=== PATIENT | male | born 1965 | race Caucasian/White ===

== ENCOUNTER 2016-09-10 17:27 | Emergency (ER) | payer BC, OTHER ==
[2016-09-10 19:41] LABS: VENOUS BASE EXCESS 3.6 (-2.0-2.0); VENOUS O2 SATURATION 58.8 % (60.0-80.0); VENOUS PARTIAL PRESSURE CO2 57.1 mmHg (38.0-50.0); VENOUS PARTIAL PRESSURE O2 31.2 mmHg (30.0-50.0); VENOUS STANDARD HCO3 26.6 MEQ/L; VENOUS TOTAL CO2 32.6 MEQ/L (24.0-28.0)
[2016-09-10 19:44] LABS: BASO % 0.3 % (0.0-1.0); EOS # 0.2 K/mm3 (0.0-0.50); EOS % 2.3 % (0.0-3.0); LARGE UNSTAINED CELL # 0.1 K/mm3 (0.0-0.4); LARGE UNSTAINED CELL % 1.5 % (0.0-4.0); LYMPH # 2.2 K/mm3 (1.5-4.5); LYMPH % 29.9 % (24.0-44.0); MEAN CORPUSCULAR HEMOGLOBIN 31.1 pg (27.0-33.0); MEAN CORPUSCULAR HGB CONC 33.2 g/dl (32.0-36.5); MEAN CORPUSCULAR VOLUME 93.8 fl (80.0-96.0); MONO # 0.4 K/mm3 (0.0-0.8); MONO % 5.4 % (0.0-5.0); NEUTROPHILS # 4.3 K/mm3 (1.8-7.7); NEUTROPHILS % 60.6 % (36.0-66.0); PLATELET COUNT, AUTOMATED 166 k/mm3 (150-450); RED CELL DISTRIBUTION WIDTH 12.9 % (11.5-14.5); WHITE BLOOD COUNT 7.1 K/mm3 (4.0-10.0)
[2016-09-10 19:58] LABS: OSMOLALITY SERUM 299 MOSM/KG (275-295)
[2016-09-10 20:08] LABS: ANION GAP 6 MEQ/L (8-16); BLOOD UREA NITROGEN 13 MG/DL (7-18); CALCIUM LEVEL 8.5 MG/DL (8.5-10.1); CARBON DIOXIDE LEVEL 34 MEQ/L (21-32); CHLORIDE LEVEL 99 MEQ/L (98-107); CREATININE FOR GFR 0.97 MG/DL (0.70-1.30); GLOMERULAR FILTRATION RATE > 60.0 (>56); GLUCOSE, FASTING 304 MG/DL (70-105); POTASSIUM SERUM 4.5 MEQ/L (3.5-5.1); SODIUM LEVEL 139 MEQ/L (136-145)
[2016-09-10] MEDS ORDERED: ATENOLOL 25 MG TAB As Ordered ONE (21:21)
--- NOTE | 2016-09-10 21:36 | EDDOCDS ---
Physician Documentation [facility] Name: Humza Graham Age: 51 yrs Sex: Male : 1965 Arrival Date: 09/10/2016 Time: 17:27 Bed 14 Private MD: NO PRIMARY PHYSICIAN, . Disposition: 09/10/16 21:23 Discharged to Home/Self Care. Impression: Diabetes mellitus due to underlying condition with hyperglycemia, Essential (primary) hypertension. - Condition is Stable. - Discharge Instructions: Blood Glucose Monitoring, Adult, Hypertension, [id number]. - Prescriptions for Glyburide 5 mg Oral Tablet - take 1 tablet by ORAL route once daily; 20 tablet. - Medication Reconciliation, Local Pharmacy Hours form. - Follow up: Pete Yadav MD; When: Call to arrange an appointment; Reason: Continuance of care. - Problem is an acute exacerbation. - Symptoms have improved. - Notes: FOLLOW UP WITH YOUR PRIMARY CARE PROVIDER FOR FURTHER MANAGEMENT OF YOUR BLOOD PRESSURE AND YOUR HIGH BLOOD SUGARS. Historical: - Allergies: Tramadol HCl (Vomit); - Home Meds: 1. atenolol 50 mg Oral tab 1 tab once daily 2. lisinopril 20 mg Oral tab 1 tab once daily 3. metformin 1,000 mg Oral TG24 1 tab 2 times per day - PMHx: Diabetes - NIDDM: controlled; Hypertension; Hypercholesterolemia; Anxiety; - PSHx: Cataract Surgery- Left; meniscus left knee; Carpal Tunnel Repair- Bilateral; - Social history: Smoking status: Patient states was never smoker of tobacco. No barriers to communication noted, The patient speaks fluent Kinyarwanda, Speaks appropriately for age. - Family history: Not pertinent. - : The pt / caregiver states he / she is not on anticoagulants. Home medication list is obtained from the patient. - Exposure Risk Screening:: None identified. Vital Signs: 09/10 17:29 BP 179 / 102; Pulse 122; Resp 18 S; Temp 98.9(O); Pulse Ox 96% on R/A; Weight 108.86 kg gr2 / 240 lbs (R); Height 5 ft. 8 in. (172.72 cm) (R); Pain 2/10; 21:10 BP 167 / 100; Pulse 93; Resp 20; Pulse Ox 97% on R/A; js15 21:15 Temp 97.5(TE); js15 17:29 Body Mass Index 36.49 (108.86 kg, 172.72 cm) gr2 MDM: 17:31 Accucheck ordered. dt4 17:48 Fingerstick Blood Sugar Ordered. EDMS 19:24 IV Saline Lock ordered. mm11 19:24 NS 0.9% 1000 ml IV at bolus once ordered. mm11 19:24 Accucheck hourly ordered. mm11 19:25 CBC with Diff Ordered. EDMS 19:25 BMP Ordered. EDMS 19:25 Osmolality, Serum Ordered. EDMS 19:25 Venous Blood Gas (large pea green tube on ice) Ordered. EDMS 20:04 Fingerstick Blood Sugar Reviewed. mm11 20:04 CBC with Diff Reviewed. mm11 20:04 Osmolality, Serum Reviewed. mm11 20:04 Venous Blood Gas (large pea green tube on ice) Reviewed. mm11 20:18 Financial registration complete. gb 20:25 [facility] Payment Agreement was scanned into [employer] and attached to record. gb 20:53 BMP Reviewed. mm11 20:53 Osmolality, Serum Reviewed. mm11 20:53 Fingerstick Blood Sugar Reviewed. mm11 20:58 Recheck B/P ordered. mm11 21:16 Atenolol 25 mg PO once ordered. mm11 21:16 Fingerstick Blood Sugar Reviewed. mm11 Point of Care Testing: Blood Glucose: 17:36 Blood Glucose: 375 mg/dL; dsf Ranges: Administered Medications: 19:37 Drug: NS 0.9% 1000 ml [sodium chloride 0.9 % intravenous solution] Route: IV; Rate: mlc bolus; Site: left antecubital; 21:26 Drug: Atenolol 25 mg [atenolol 25 mg tablet (1 tabs)] Route: PO; js15 Signatures: Dispatcher [employer] EDMS Lauryn Daley, RN RN srm Stella Fajardo, Reg Reg gb Wu Rich, DO mm11 Gogo Cardona RN RN dsf Annamaria Ireland, PA-C PA-C dt4 Kalli Suarez RN RN js15 Judy Porras RN [facility] The chart was reviewed and I authenticate all verbal orders and agree with the evaluation and treatment provided.Attachments: 20:25 [facility] Payment Agreement gb MTDD
--- NOTE | 2016-09-10 21:36 | EDDOCDS ---
Nurse's Notes [facility] Name: Humza Graham Age: 51 yrs Sex: Male : 1965 Arrival Date: 09/10/2016 Time: 17:27 Bed 14 Private MD: NO PRIMARY PHYSICIAN, . Diagnosis: Diabetes mellitus due to underlying condition with hyperglycemia;Essential (primary) hypertension Presentation: 09/10 17:32 Presenting complaint: Patient states: 489 blood glucose level at home. pt reports dsf feeling shaky and weak. Suicide/Homicide risk assessment- the patient denies having any suicidal and/or homicidal ideations and does not present with any other emotional, behavioral or mental health complaints. Status: Patient is not a service clerk or dependent. Transition of care: patient was not received from another setting of care. 17:32 Method Of Arrival: Walkin/Carried/Asstd dsf 17:42 Adult Sepsis Screening: The patient does not have new or worsening altered mentation. dsf Patient's respiratory rate is less than 22. Systolic blood pressure is greater than 100. Patient has a qSOFA score of 0- Negative Sepsis Screen. 17:42 Acuity: JOSHUA Level 3 dsf Triage Assessment: 17:34 General: Appears in no apparent distress, Behavior is appropriate for age, cooperative. dsf Pain: Denies pain. HIV screening NA for this visit Offered previously. Neurological: Reports weakness. Respiratory: Airway is patent Respiratory effort is even, unlabored, Respiratory pattern is regular, symmetrical. 17:34 Derm: Skin is pink, warm & dry. dsf Historical: - Allergies: Tramadol HCl (Vomit); - Home Meds: 1. atenolol 50 mg Oral tab 1 tab once daily 2. lisinopril 20 mg Oral tab 1 tab once daily 3. metformin 1,000 mg Oral TG24 1 tab 2 times per day - PMHx: Diabetes - NIDDM: controlled; Hypertension; Hypercholesterolemia; Anxiety; - PSHx: Cataract Surgery- Left; meniscus left knee; Carpal Tunnel Repair- Bilateral; - Social history: Smoking status: Patient states was never smoker of tobacco. No barriers to communication noted, The patient speaks fluent Malawian, Speaks appropriately for age. - Family history: Not pertinent. - : The pt / caregiver states he / she is not on anticoagulants. Home medication list is obtained from the patient. - Exposure Risk Screening:: None identified. Screenin:12 Screening information is obtained from the patient. Fall risk: No risks identified. js15 Assistance ADL's: requires no assistance with activities of daily living. Abuse/DV Screen: The patient / caregiver reports he/she is: not in a situation that causes fear, pain or injury. Nutritional screening: No deficits noted. Advance Directives: There is no active DNR order. home support is adequate. Assessment: 20:12 General: Appears in no apparent distress, comfortable, Behavior is appropriate for age, js15 cooperative. Pain: Denies pain. Neurological: Level of Consciousness is awake, alert, obeys commands, Oriented to person, place, time. Cardiovascular: Capillary refill < 3 seconds Heart tones S1 S2 present. Respiratory: Airway is patent Respiratory effort is even, unlabored, Respiratory pattern is regular, symmetrical, Breath sounds are clear bilaterally. GI: Abdomen is non- distended Bowel sounds present X 4 quads. Abd is soft and non tender X 4 quads. Derm: Skin is pink, warm & dry. 21:15 Reassessment: Patient appears in no apparent distress at this time. Patient denies pain js15 at this time. Patient states feeling better. Pt resting on stretcher, respirations even and unlabored, watching tv and talking to family; skin pink, warm, dry. Vital Signs: 17:29 BP 179 / 102; Pulse 122; Resp 18 S; Temp 98.9(O); Pulse Ox 96% on R/A; Weight 108.86 kg gr2 (R); Height 5 ft. 8 in. (172.72 cm) (R); Pain 2/10; 21:10 BP 167 / 100; Pulse 93; Resp 20; Pulse Ox 97% on R/A; js15 21:15 Temp 97.5(TE); js15 17:29 Body Mass Index 36.49 (108.86 kg, 172.72 cm) gr2 Vitals: 17:29 Log In Time: September 10, 2016 at 17:29. gr2 ED Course: 17:28 Patient visited by Jose Juan Medina. gr2 17:28 NO PRIMARY PHYSICIAN, . is Private Physician. gr2 17:28 Patient moved to Waiting gr2 17:30 Patient visited by Jose Juan Medina. gr2 17:30 Patient moved to Pre RCE gr2 17:42 Triage Initiated dsf 19:05 Adamaris Parsons,MILENA is Primary Nurse. ct3 19:05 Patient moved to 14 ct3 19:14 Wu Rich DO is Attending Physician. mm11 19:14 Patient visited by Wu Rich DO. mm11 19:23 Patient visited by Wu Rich DO. mm11 19:37 Patient visited by Judy Porras RN. mlc 19:37 CBC with Diff Sent. mlc 19:37 BMP Sent. mlc 19:37 Osmolality, Serum Sent. mlc 19:37 Venous Blood Gas (large pea green tube on ice) Sent. mlc 19:37 Inserted saline lock: 18 gauge in left antecubital area and blood collected. The [facility] patient tolerated the procedure well. 20:10 Patient visited by Kalli Suarez RN. js15 20:12 The patient / caregiver is instructed regarding the plan of care and ED course. js15 20:25 [facility] Payment Agreement was scanned into [employer] and attached to record. gb 20:55 Patient visited by Wu Rich DO. mm11 21:15 Discontinued IV lock intact, bleeding controlled, pressure dressing applied, No js15 redness/swelling at site. No procedures done that require assistance. 21:22 Pete Yadav MD is Referral Physician. mm11 Administered Medications: 19:37 Drug: NS 0.9% 1000 ml [sodium chloride 0.9 % intravenous solution] Route: IV; Rate: mlc bolus; Site: left antecubital; 21:26 Drug: Atenolol 25 mg [atenolol 25 mg tablet (1 tabs)] Route: PO; js15 Point of Care Testing: Blood Glucose: 17:36 Blood Glucose: 375 mg/dL; dsf Ranges: Order Results: Lab Order: Fingerstick Blood Sugar; SPEC'M 09/10/16 17:36 Test: BEDSIDE GLUCOSE; Value: 375; Range: 70-105; Abnormal: Above high normal; Units: MG/DL; Status: F Lab Order: CBC with Diff; SPEC'M 09/10/16 19:34 Test: WHITE BLOOD COUNT; Value: 7.1; Range: 4.0-10.0; Units: K/mm3; Status: F Test: RED BLOOD COUNT; Value: 4.72; Range: 4.30-6.10; Units: M/mm3; Status: F Test: HEMOGLOBIN; Value: 14.7; Range: 14.0-18.0; Units: g/dl; Status: F Test: HEMATOCRIT; Value: 44.3; Range: 42.0-52.0; Units: %; Status: F Test: MEAN CORPUSCULAR VOLUME; Value: 93.8; Range: 80.0-96.0; Units: fl; Status: F Test: MEAN CORPUSCULAR HEMOGLOBIN; Value: 31.1; Range: 27.0-33.0; Units: pg; Status: F Test: MEAN CORPUSCULAR HGB CONC; Value: 33.2; Range: 32.0-36.5; Units: g/dl; Status: F Test: RED CELL DISTRIBUTION WIDTH; Value: 12.9; Range: 11.5-14.5; Units: %; Status: F Test: PLATELET COUNT, AUTOMATED; Value: 166; Range: 150-450; Units: k/mm3; Status: F Test: NEUTROPHILS %; Value: 60.6; Range: 36.0-66.0; Units: %; Status: F Test: LYMPH %; Value: 29.9; Range: 24.0-44.0; Units: %; Status: F Test: MONO %; Value: 5.4; Range: 0.0-5.0; Abnormal: Above high normal; Units: %; Status: F Test: EOS %; Value: 2.3; Range: 0.0-3.0; Units: %; Status: F Test: BASO %; Value: 0.3; Range: 0.0-1.0; Units: %; Status: F Test: LARGE UNSTAINED CELL %; Value: 1.5; Range: 0.0-4.0; Units: %; Status: F Test: NEUTROPHILS #; Value: 4.3; Range: 1.8-7.7; Units: K/mm3; Status: F Test: LYMPH #; Value: 2.2; Range: 1.5-4.5; Units: K/mm3; Status: F Test: MONO #; Value: 0.4; Range: 0.0-0.8; Units: K/mm3; Status: F Test: EOS #; Value: 0.2; Range: 0.0-0.50; Units: K/mm3; Status: F Test: BASO #; Value: 0.0; Range: 0.0-0.2; Units: K/mm3; Status: F Test: LARGE UNSTAINED CELL #; Value: 0.1; Range: 0.0-0.4; Units: K/mm3; Status: F Lab Order: [facility]; SPEC'M 09/10/16 19:34 Test: GLUCOSE, FASTING; Value: 304; Range: 70-105; Abnormal: Above high normal; Units: MG/DL; Status: F Test: BLOOD UREA NITROGEN; Value: 13; Range: 7-18; Units: MG/DL; Status: F Test: CREATININE FOR GFR; Value: 0.97; Range: 0.70-1.30; Units: MG/DL; Status: F Test: SODIUM LEVEL; Range: 136-145; Units: MEQ/L; Status: I Test: POTASSIUM SERUM; Range: 3.5-5.1; Units: MEQ/L; Status: I Test: CHLORIDE LEVEL; Range: 98-107; Units: MEQ/L; Status: I Test: CARBON DIOXIDE LEVEL; Range: 21-32; Units: MEQ/L; Status: I Test: ANION GAP; Range: 8-16; Units: MEQ/L; Status: I Test: CALCIUM LEVEL; Range: 8.5-10.1; Units: MG/DL; Status: I Test: GLOMERULAR FILTRATION RATE; Value: > 60.0; Range: >56; Status: F Test: SODIUM LEVEL; Value: 139; Range: 136-145; Units: MEQ/L; Status: F Test: POTASSIUM SERUM; Value: 4.5; Range: 3.5-5.1; Units: MEQ/L; Status: F Test: CHLORIDE LEVEL; Value: 99; Range: 98-107; Units: MEQ/L; Status: F Test: CARBON DIOXIDE LEVEL; Value: 34; Range: 21-32; Abnormal: Above high normal; Units: MEQ/L; Status: F Test: ANION GAP; Value: 6; Range: 8-16; Abnormal: Below low normal; Units: MEQ/L; Status: F Test: CALCIUM LEVEL; Value: 8.5; Range: 8.5-10.1; Units: MG/DL; Status: F Test Note: ; Units are mL/min/1.73 m2 Chronic Kidney Disease Staging per NKF: Stage I & II GFR >=60 Normal to Mildly Decreased Stage III GFR 30-59 Moderately Decreased Stage IV GFR 15-29 Severely Decreased Stage V GFR <15 Very Little GFR Left ESRD GFR <15 on [employer] WORKER Lab Order: Osmolality, Serum; [facility]09/10/16 19:34 Test: OSMOLALITY SERUM; Value: 299; Range: 275-295; Abnormal: Above high normal; Units: MOSM/KG; Status: F Lab Order: Venous Blood Gas (large pea green tube on ice); [facility] 09/10/16 19:34 Test: VENOUS PH; Value: 7.350; Range: 7.330-7.430; Units: UNITS; Status: F Test: VENOUS PARTIAL PRESSURE CO2; Value: 57.1; Range: 38.0-50.0; Abnormal: Above high normal; Units: mmHg; Status: F Test: VENOUS PARTIAL PRESSURE O2; Value: 31.2; Range: 30.0-50.0; Units: mmHg; Status: F Test: VENOUS TOTAL CO2; Value: 32.6; Range: 24.0-28.0; Abnormal: Above high normal; Units: MEQ/L; Status: F Test: VENOUS HCO3; Value: 30.8; Range: 23.0-27.0; Abnormal: Above high normal; Units: MEQ/L; Status: F Test: VENOUS BASE EXCESS; Value: 3.6; Range: -2.0-2.0; Abnormal: Above high normal; Status: F Test: VENOUS STANDARD HCO3; Value: 26.6; Units: MEQ/L; Status: F Test: VENOUS O2 SATURATION; Value: 58.8; Range: 60.0-80.0; Abnormal: Below low normal; Units: %; Status: F Lab Order: Fingerstick Blood Sugar; [facility]09/10/16 19:57 Test: BEDSIDE GLUCOSE; Value: 294; Range: 70-105; Abnormal: Above high normal; Units: MG/DL; Status: F Test Note: ; RN Notified Doctor Notified Lab Order: Fingerstick Blood Sugar; [facility] 09/10/16 21:07 Test: BEDSIDE GLUCOSE; Value: 217; Range: 70-105; Abnormal: Above high normal; Units: MG/DL; Status: F Test Note: ; RN Notified Doctor Notified Outcome: 21:15 Discharge Assessment: Patient awake, alert and oriented x 3. No cognitive and/or js15 functional deficits noted. Patient verbalized understanding of disposition instructions. patient administered narcotics - no. The following High Risk Discharge criteria are identified: None. Discharged to home ambulatory. Condition: stable. Discharge instructions given to patient, Instructed on discharge instructions, follow up and referral plans. medication usage, Demonstrated understanding of instructions, medications, Pt was receptive of discharge instructions/ teaching. Prescriptions given X 1. No special radiology studies were completed. Property sent home with patient. 21:23 Discharge ordered by Provider. mm11 21:35 Patient left the ED. js15 Signatures: Lauryn Daley, RN RN [facility] Scotty, Stella, Reg Reg gb Wu Rich, DO DO mm11 Josee Burkett, MAINTENANCE OF WAY SUPERVISOR MAINTENANCE OF WAY SUPERVISOR ct3 Gogo Cardona,RN RN Jose Juan Tejeda gr2 Judy Porras,RN RN Kalli ColladoRN RN js15 SEBAS
--- NOTE | 2016-09-12 22:36 | EDDOCDS ---
Nurse's Notes [facility] Name: Humza Graham Age: 51 yrs Sex: Male : 1965 Arrival Date: 09/10/2016 Time: 17:27 Bed 14 Private MD: NO PRIMARY PHYSICIAN, . Diagnosis: Diabetes mellitus due to underlying condition with hyperglycemia;Essential (primary) hypertension Presentation: 09/10 17:32 Presenting complaint: Patient states: 489 blood glucose level at home. pt reports dsf feeling shaky and weak. Suicide/Homicide risk assessment- the patient denies having any suicidal and/or homicidal ideations and does not present with any other emotional, behavioral or mental health complaints. Status: Patient is not a automotive service porter or dependent. Transition of care: patient was not received from another setting of care. 17:32 Method Of Arrival: Walkin/Carried/Asstd dsf 17:42 Adult Sepsis Screening: The patient does not have new or worsening altered mentation. dsf Patient's respiratory rate is less than 22. Systolic blood pressure is greater than 100. Patient has a qSOFA score of 0- Negative Sepsis Screen. 17:42 Acuity: JOSHUA Level 3 dsf Triage Assessment: 17:34 General: Appears in no apparent distress, Behavior is appropriate for age, cooperative. dsf Pain: Denies pain. HIV screening NA for this visit Offered previously. Neurological: Reports weakness. Respiratory: Airway is patent Respiratory effort is even, unlabored, Respiratory pattern is regular, symmetrical. 17:34 Derm: Skin is pink, warm & dry. dsf Historical: - Allergies: Tramadol HCl (Vomit); - Home Meds: 1. atenolol 50 mg Oral tab 1 tab once daily 2. lisinopril 20 mg Oral tab 1 tab once daily 3. metformin 1,000 mg Oral TG24 1 tab 2 times per day - PMHx: Diabetes - NIDDM: controlled; Hypertension; Hypercholesterolemia; Anxiety; - PSHx: Cataract Surgery- Left; meniscus left knee; Carpal Tunnel Repair- Bilateral; - Social history: Smoking status: Patient states was never smoker of tobacco. No barriers to communication noted, The patient speaks fluent Turkmen, Speaks appropriately for age. - Family history: Not pertinent. - : The pt / caregiver states he / she is not on anticoagulants. Home medication list is obtained from the patient. - Exposure Risk Screening:: None identified. Screenin:12 Screening information is obtained from the patient. Fall risk: No risks identified. js15 Assistance ADL's: requires no assistance with activities of daily living. Abuse/DV Screen: The patient / caregiver reports he/she is: not in a situation that causes fear, pain or injury. Nutritional screening: No deficits noted. Advance Directives: There is no active DNR order. home support is adequate. Assessment: 20:12 General: Appears in no apparent distress, comfortable, Behavior is appropriate for age, js15 cooperative. Pain: Denies pain. Neurological: Level of Consciousness is awake, alert, obeys commands, Oriented to person, place, time. Cardiovascular: Capillary refill < 3 seconds Heart tones S1 S2 present. Respiratory: Airway is patent Respiratory effort is even, unlabored, Respiratory pattern is regular, symmetrical, Breath sounds are clear bilaterally. GI: Abdomen is non- distended Bowel sounds present X 4 quads. Abd is soft and non tender X 4 quads. Derm: Skin is pink, warm & dry. 21:15 Reassessment: Patient appears in no apparent distress at this time. Patient denies pain js15 at this time. Patient states feeling better. Pt resting on stretcher, respirations even and unlabored, watching tv and talking to family; skin pink, warm, dry. Vital Signs: 17:29 BP 179 / 102; Pulse 122; Resp 18 S; Temp 98.9(O); Pulse Ox 96% on R/A; Weight 108.86 kg gr2 (R); Height 5 ft. 8 in. (172.72 cm) (R); Pain 2/10; 21:10 BP 167 / 100; Pulse 93; Resp 20; Pulse Ox 97% on R/A; js15 21:15 Temp 97.5(TE); js15 17:29 Body Mass Index 36.49 (108.86 kg, 172.72 cm) gr2 Vitals: 17:29 Log In Time: September 10, 2016 at 17:29. gr2 ED Course: 17:28 Patient visited by Jose Juan Medina. gr2 17:28 NO PRIMARY PHYSICIAN, . is Private Physician. gr2 17:28 Patient moved to Waiting gr2 17:30 Patient visited by Jose Juan Medina. gr2 17:30 Patient moved to Pre RCE gr2 17:42 Triage Initiated dsf 19:05 Adamaris Parsons,MILENA is Primary Nurse. ct3 19:05 Patient moved to 14 ct3 19:14 Wu Rich DO is Attending Physician. mm11 19:14 Patient visited by Wu Rich DO. mm11 19:23 Patient visited by Wu Rich DO. mm11 19:37 Patient visited by Judy Porras RN. mlc 19:37 CBC with Diff Sent. mlc 19:37 BMP Sent. mlc 19:37 Osmolality, Serum Sent. mlc 19:37 Venous Blood Gas (large pea green tube on ice) Sent. mlc 19:37 Inserted saline lock: 18 gauge in left antecubital area and blood collected. [facility] [place] tolerated the procedure well. 20:10 Patient visited by Kalli Suarez RN. js15 20:12 The patient / caregiver is instructed regarding the plan of care and ED course. js15 20:25 [facility] Payment Agreement was scanned into [employer] and attached to record. gb 20:55 Patient visited by Wu Rich DO. mm11 21:15 Discontinued IV lock intact, bleeding controlled, pressure dressing applied, No js15 redness/swelling at site. No procedures done that require assistance. 21:22 Pete Yadav MD is Referral Physician. mm11 09/11 09:47 T-Sheet-- Draft Copy was scanned into [employer] and attached to record. jp5 Administered Medications: 09/10 19:37 Drug: NS 0.9% 1000 ml [sodium chloride 0.9 % intravenous solution] Route: IV; Rate: mlc bolus; Site: left antecubital; 21:26 Drug: Atenolol 25 mg [atenolol 25 mg tablet (1 tabs)] Route: PO; js15 Point of Care Testing: Blood Glucose: 17:36 Blood Glucose: 375 mg/dL; dsf Ranges: Order Results: Lab Order: Fingerstick Blood Sugar; SPEC'M 09/10/16 17:36 Test: BEDSIDE GLUCOSE; Value: 375; Range: 70-105; Abnormal: Above high normal; Units: MG/DL; Status: F Lab Order: CBC with Diff; SPEC'M 09/10/16 19:34 Test: WHITE BLOOD COUNT; Value: 7.1; Range: 4.0-10.0; Units: K/mm3; Status: F Test: RED BLOOD COUNT; Value: 4.72; Range: 4.30-6.10; Units: M/mm3; Status: F Test: HEMOGLOBIN; Value: 14.7; Range: 14.0-18.0; Units: g/dl; Status: F Test: HEMATOCRIT; Value: 44.3; Range: 42.0-52.0; Units: %; Status: F Test: MEAN CORPUSCULAR VOLUME; Value: 93.8; Range: 80.0-96.0; Units: fl; Status: F Test: MEAN CORPUSCULAR HEMOGLOBIN; Value: 31.1; Range: 27.0-33.0; Units: pg; Status: F Test: MEAN CORPUSCULAR HGB CONC; Value: 33.2; Range: 32.0-36.5; Units: g/dl; Status: F Test: RED CELL DISTRIBUTION WIDTH; Value: 12.9; Range: 11.5-14.5; Units: %; Status: F Test: PLATELET COUNT, AUTOMATED; Value: 166; Range: 150-450; Units: k/mm3; Status: F Test: NEUTROPHILS %; Value: 60.6; Range: 36.0-66.0; Units: %; Status: F Test: LYMPH %; Value: 29.9; Range: 24.0-44.0; Units: %; Status: F Test: MONO %; Value: 5.4; Range: 0.0-5.0; Abnormal: Above high normal; Units: %; Status: F Test: EOS %; Value: 2.3; Range: 0.0-3.0; Units: %; Status: F Test: BASO %; Value: 0.3; Range: 0.0-1.0; Units: %; Status: F Test: LARGE UNSTAINED CELL %; Value: 1.5; Range: 0.0-4.0; Units: %; Status: F Test: NEUTROPHILS #; Value: 4.3; Range: 1.8-7.7; Units: K/mm3; Status: F Test: LYMPH #; Value: 2.2; Range: 1.5-4.5; Units: K/mm3; Status: F Test: MONO #; Value: 0.4; Range: 0.0-0.8; Units: K/mm3; Status: F Test: EOS #; Value: 0.2; Range: 0.0-0.50; Units: K/mm3; Status: F Test: BASO #; Value: 0.0; Range: 0.0-0.2; Units: K/mm3; Status: F Test: LARGE UNSTAINED CELL #; Value: 0.1; Range: 0.0-0.4; Units: K/mm3; Status: F Lab Order: [facility]; SPEC'M 09/10/16 19:34 Test: GLUCOSE, FASTING; Value: 304; Range: 70-105; Abnormal: Above high normal; Units: MG/DL; Status: F Test: BLOOD UREA NITROGEN; Value: 13; Range: 7-18; Units: MG/DL; Status: F Test: CREATININE FOR GFR; Value: 0.97; Range: 0.70-1.30; Units: MG/DL; Status: F Test: SODIUM LEVEL; Range: 136-145; Units: MEQ/L; Status: I Test: POTASSIUM SERUM; Range: 3.5-5.1; Units: MEQ/L; Status: I Test: CHLORIDE LEVEL; Range: 98-107; Units: MEQ/L; Status: I Test: CARBON DIOXIDE LEVEL; Range: 21-32; Units: MEQ/L; Status: I Test: ANION GAP; Range: 8-16; Units: MEQ/L; Status: I Test: CALCIUM LEVEL; Range: 8.5-10.1; Units: MG/DL; Status: I Test: GLOMERULAR FILTRATION RATE; Value: > 60.0; Range: >56; Status: F Test: SODIUM LEVEL; Value: 139; Range: 136-145; Units: MEQ/L; Status: F Test: POTASSIUM SERUM; Value: 4.5; Range: 3.5-5.1; Units: MEQ/L; Status: F Test: CHLORIDE LEVEL; Value: 99; Range: 98-107; Units: MEQ/L; Status: F Test: CARBON DIOXIDE LEVEL; Value: 34; Range: 21-32; Abnormal: Above high normal; Units: MEQ/L; Status: F Test: ANION GAP; Value: 6; Range: 8-16; Abnormal: Below low normal; Units: MEQ/L; Status: F Test: CALCIUM LEVEL; Value: 8.5; Range: 8.5-10.1; Units: MG/DL; Status: F Test Note: ; Units are mL/min/1.73 m2 Chronic Kidney Disease Staging per NKF: Stage I & II GFR >=60 Normal to Mildly Decreased Stage III GFR 30-59 Moderately Decreased Stage IV GFR 15-29 Severely Decreased Stage V GFR <15 Very Little GFR Left ESRD GFR <15 on MACHINE ASSEMBLER SUPERVISOR Lab Order: Osmolality, Serum; [facility]09/10/16 19:34 Test: OSMOLALITY SERUM; Value: 299; Range: 275-295; Abnormal: Above high normal; Units: MOSM/KG; Status: F Lab Order: Venous Blood Gas (large pea green tube on ice); [facility] 09/10/16 19:34 Test: VENOUS PH; Value: 7.350; Range: 7.330-7.430; Units: UNITS; Status: F Test: VENOUS PARTIAL PRESSURE CO2; Value: 57.1; Range: 38.0-50.0; Abnormal: Above high normal; Units: mmHg; Status: F Test: VENOUS PARTIAL PRESSURE O2; Value: 31.2; Range: 30.0-50.0; Units: mmHg; Status: F Test: VENOUS TOTAL CO2; Value: 32.6; Range: 24.0-28.0; Abnormal: Above high normal; Units: MEQ/L; Status: F Test: VENOUS HCO3; Value: 30.8; Range: 23.0-27.0; Abnormal: Above high normal; Units: MEQ/L; Status: F Test: VENOUS BASE EXCESS; Value: 3.6; Range: -2.0-2.0; Abnormal: Above high normal; Status: F Test: VENOUS STANDARD HCO3; Value: 26.6; Units: MEQ/L; Status: F Test: VENOUS O2 SATURATION; Value: 58.8; Range: 60.0-80.0; Abnormal: Below low normal; Units: %; Status: F Lab Order: Fingerstick Blood Sugar; SPEC09/10/16 19:57 Test: BEDSIDE GLUCOSE; Value: 294; Range: 70-105; Abnormal: Above high normal; Units: MG/DL; Status: F Test Note: ; RN Notified Doctor Notified Lab Order: Fingerstick Blood Sugar; [facility] 09/10/16 21:07 Test: BEDSIDE GLUCOSE; Value: 217; Range: 70-105; Abnormal: Above high normal; Units: MG/DL; Status: F Test Note: ; RN Notified Doctor Notified Outcome: 21:15 Discharge Assessment: Patient awake, alert and oriented x 3. No cognitive and/or js15 functional deficits noted. Patient verbalized understanding of disposition instructions. patient administered narcotics - no. The following High Risk Discharge criteria are identified: None. Discharged to home ambulatory. Condition: stable. Discharge instructions given to patient, Instructed on discharge instructions, follow up and referral plans. medication usage, Demonstrated understanding of instructions, medications, Pt was receptive of discharge instructions/ teaching. Prescriptions given X 1. No special radiology studies were completed. Property sent home with patient. 21:23 Discharge ordered by Provider. mm11 21:35 Patient left the ED. js15 Signatures: Lauryn Daley, RN RN [facility] Stella Fajardo, Reg Reg gb Wu Rich, DO DO mm11 Josee Burkett, CHEERLEADING COACH CHEERLEADING COACH ct3 Gogo Cardona RN RN Jose Juan Reyes gr2 Judy Porras RN RN mlc Sweeney, Julia, RN RN js15 Esturado Carter jp5 Chart Complete [facility]
--- NOTE | 2016-09-12 22:36 | EDDOCDS ---
Physician Documentation [facility] Name: Humza Graham Age: 51 yrs Sex: Male : 1965 Arrival Date: 09/10/2016 Time: 17:27 Bed 14 Private MD: NO PRIMARY PHYSICIAN, . Disposition: 09/10/16 21:23 Discharged to Home/Self Care. Impression: Diabetes mellitus due to underlying condition with hyperglycemia, Essential (primary) hypertension. - Condition is Stable. - Discharge Instructions: Blood Glucose Monitoring, Adult, Hypertension, [id number]. - Prescriptions for Glyburide 5 mg Oral Tablet - take 1 tablet by ORAL route once daily; 20 tablet. - Medication Reconciliation, Local Pharmacy Hours form. - Follow up: Pete Yadav MD; When: Call to arrange an appointment; Reason: Continuance of care. - Problem is an acute exacerbation. - Symptoms have improved. - Notes: FOLLOW UP WITH YOUR PRIMARY CARE PROVIDER FOR FURTHER MANAGEMENT OF YOUR BLOOD PRESSURE AND YOUR HIGH BLOOD SUGARS. Historical: - Allergies: Tramadol HCl (Vomit); - Home Meds: 1. atenolol 50 mg Oral tab 1 tab once daily 2. lisinopril 20 mg Oral tab 1 tab once daily 3. metformin 1,000 mg Oral TG24 1 tab 2 times per day - PMHx: Diabetes - NIDDM: controlled; Hypertension; Hypercholesterolemia; Anxiety; - PSHx: Cataract Surgery- Left; meniscus left knee; Carpal Tunnel Repair- Bilateral; - Social history: Smoking status: Patient states was never smoker of tobacco. No barriers to communication noted, The patient speaks fluent Belarusian, Speaks appropriately for age. - Family history: Not pertinent. - : The pt / caregiver states he / she is not on anticoagulants. Home medication list is obtained from the patient. - Exposure Risk Screening:: None identified. Vital Signs: 09/10 17:29 BP 179 / 102; Pulse 122; Resp 18 S; Temp 98.9(O); Pulse Ox 96% on R/A; Weight 108.86 kg gr2 / 240 lbs (R); Height 5 ft. 8 in. (172.72 cm) (R); Pain 2/10; 21:10 BP 167 / 100; Pulse 93; Resp 20; Pulse Ox 97% on R/A; js15 21:15 Temp 97.5(TE); js15 17:29 Body Mass Index 36.49 (108.86 kg, 172.72 cm) gr2 MDM: 17:31 Accucheck ordered. dt4 17:48 Fingerstick Blood Sugar Ordered. EDMS 19:24 IV Saline Lock ordered. mm11 19:24 NS 0.9% 1000 ml IV at bolus once ordered. mm11 19:24 Accucheck hourly ordered. mm11 19:25 CBC with Diff Ordered. EDMS 19:25 BMP Ordered. EDMS 19:25 Osmolality, Serum Ordered. EDMS 19:25 Venous Blood Gas (large pea green tube on ice) Ordered. EDMS 20:04 Fingerstick Blood Sugar Reviewed. mm11 20:04 CBC with Diff Reviewed. mm11 20:04 Osmolality, Serum Reviewed. mm11 20:04 Venous Blood Gas (large pea green tube on ice) Reviewed. mm11 20:18 Financial registration complete. gb 20:25 [facility] [place] was scanned into [employer] and attached to record. gb 20:53 BMP Reviewed. mm11 20:53 Osmolality, Serum Reviewed. mm11 20:53 Fingerstick Blood Sugar Reviewed. mm11 20:58 Recheck B/P ordered. mm11 21:16 Atenolol 25 mg PO once ordered. mm11 21:16 Fingerstick Blood Sugar Reviewed. mm11 09/11 09:47 T-Sheet-- Draft Copy was scanned into [employer] and attached to record. jp5 Point of Care Testing: Blood Glucose: 09/10 17:36 Blood Glucose: 375 mg/dL; dsf Ranges: Administered Medications: 19:37 Drug: NS 0.9% 1000 ml [sodium chloride 0.9 % intravenous solution] Route: IV; Rate: mlc bolus; Site: left antecubital; 21:26 Drug: Atenolol 25 mg [atenolol 25 mg tablet (1 tabs)] Route: PO; js15 Signatures: Dispatcher [employer] Lauryn Barnett RN RN [facility] Stella Fajardo, Reg Reg Wu Rich, DO MONTANO mm11 Gogo Cardona RN RN dsf Annamaria Ireland, DIETERC PA-C dt4 Kalli Suarez RN RN js15 Estuardo Carter jp5 Judy Porras RN mlc The chart was reviewed and I authenticate all verbal orders and agree with the evaluation and treatment provided.Attachments: 20:25 [facility] [place] Agreement gb 09/11 09:47 T-Sheet-- Draft Copy jp5 Chart Complete MTDD
--- NOTE | 2016-09-12 22:36 | EDDOCDS ---
Physician Documentation [facility] Name: Humza Graham Age: 51 yrs Sex: Male : 1965 Arrival Date: 09/10/2016 Time: 17:27 Bed 14 Private MD: NO PRIMARY PHYSICIAN, . Disposition: 09/10/16 21:23 Discharged to Home/Self Care. Impression: Diabetes mellitus due to underlying condition with hyperglycemia, Essential (primary) hypertension. - Condition is Stable. - Discharge Instructions: Blood Glucose Monitoring, Adult, Hypertension, [id number]. - Prescriptions for Glyburide 5 mg Oral Tablet - take 1 tablet by ORAL route once daily; 20 tablet. - Medication Reconciliation, Local Pharmacy Hours form. - Follow up: Pete Yadav MD; When: Call to arrange an appointment; Reason: Continuance of care. - Problem is an acute exacerbation. - Symptoms have improved. - Notes: FOLLOW UP WITH YOUR PRIMARY CARE PROVIDER FOR FURTHER MANAGEMENT OF YOUR BLOOD PRESSURE AND YOUR HIGH BLOOD SUGARS. Historical: - Allergies: Tramadol HCl (Vomit); - Home Meds: 1. atenolol 50 mg Oral tab 1 tab once daily 2. lisinopril 20 mg Oral tab 1 tab once daily 3. metformin 1,000 mg Oral TG24 1 tab 2 times per day - PMHx: Diabetes - NIDDM: controlled; Hypertension; Hypercholesterolemia; Anxiety; - PSHx: Cataract Surgery- Left; meniscus left knee; Carpal Tunnel Repair- Bilateral; - Social history: Smoking status: Patient states was never smoker of tobacco. No barriers to communication noted, The patient speaks fluent Azeri, Speaks appropriately for age. - Family history: Not pertinent. - : The pt / caregiver states he / she is not on anticoagulants. Home medication list is obtained from the patient. - Exposure Risk Screening:: None identified. Vital Signs: 09/10 17:29 BP 179 / 102; Pulse 122; Resp 18 S; Temp 98.9(O); Pulse Ox 96% on R/A; Weight 108.86 kg gr2 / 240 lbs (R); Height 5 ft. 8 in. (172.72 cm) (R); Pain 2/10; 21:10 BP 167 / 100; Pulse 93; Resp 20; Pulse Ox 97% on R/A; js15 21:15 Temp 97.5(TE); js15 17:29 Body Mass Index 36.49 (108.86 kg, 172.72 cm) gr2 MDM: 17:31 Accucheck ordered. dt4 17:48 Fingerstick Blood Sugar Ordered. EDMS 19:24 IV Saline Lock ordered. mm11 19:24 NS 0.9% 1000 ml IV at bolus once ordered. mm11 19:24 Accucheck hourly ordered. mm11 19:25 CBC with Diff Ordered. EDMS 19:25 BMP Ordered. EDMS 19:25 Osmolality, Serum Ordered. EDMS 19:25 Venous Blood Gas (large pea green tube on ice) Ordered. EDMS 20:04 Fingerstick Blood Sugar Reviewed. mm11 20:04 CBC with Diff Reviewed. mm11 20:04 Osmolality, Serum Reviewed. mm11 20:04 Venous Blood Gas (large pea green tube on ice) Reviewed. mm11 20:18 Financial registration complete. gb 20:25 [facility] [place] Agreement was scanned into [employer] and attached to record. gb 20:53 BMP Reviewed. mm11 20:53 Osmolality, Serum Reviewed. mm11 20:53 Fingerstick Blood Sugar Reviewed. mm11 20:58 Recheck B/P ordered. mm11 21:16 Atenolol 25 mg PO once ordered. mm11 21:16 Fingerstick Blood Sugar Reviewed. mm11 09/11 09:47 T-Sheet-- Draft Copy was scanned into [employer] and attached to record. jp5 Point of Care Testing: Blood Glucose: 09/10 17:36 Blood Glucose: 375 mg/dL; dsf Ranges: Administered Medications: 19:37 Drug: NS 0.9% 1000 ml [sodium chloride 0.9 % intravenous solution] Route: IV; Rate: mlc bolus; Site: left antecubital; 21:26 Drug: Atenolol 25 mg [atenolol 25 mg tablet (1 tabs)] Route: PO; js15 Signatures: Dispatcher [employer] Lauryn Barnett RN RN [facility] Stella Fajardo, Reg Reg Wu Rich, DO MONTANO mm11 Gogo Cardona RN RN dsf Annamaria Ireland, DIETERC PA-C dt4 Kalli Suarez RN RN js15 Estuardo Carter jp5 Judy Porras RN mlc The chart was reviewed and I authenticate all verbal orders and agree with the evaluation and treatment provided.Attachments: 20:25 [facility] [place] Agreement gb 09/11 09:47 T-Sheet-- Draft Copy jp5 Chart Complete MTDD
== END 2016-09-10 21:35 | disposition home or self-care (01) ==
LOC: M ED 17:27
DX: E11.65 Type 2 diabetes mellitus with hyperglycemia (principal); I10 Essential (primary) hypertension; E78.00 Pure hypercholesterolemia, unspecified; F41.9 Anxiety disorder, unspecified; Z79.899 Other long term (current) drug therapy; Z79.84 Long term (current) use of oral hypoglycemic drugs; Z88.5 Allergy status to narcotic agent

== ENCOUNTER → 2016-09-21 | Outpatient (REF) | payer OTHER | LOC: M SFHCADAM 16:28 | PROVIDERS: ATTEND Physician Assistant | DX: E11.9 Type 2 diabetes mellitus without complications (principal) ==

== ENCOUNTER → 2017-01-31 | Outpatient (REF) | payer OTHER, SELFPAY ==
[2017-01-31 13:28] LABS: ALBUMIN 3.8 GM/DL (3.2-5.2); ALBUMIN/GLOBULIN RATIO 1.19 (1.00-1.93); ALKALINE PHOSPHATASE 67 U/L (45-117); ALT/SGPT 146 U/L (12-78); ANION GAP 7 MEQ/L (8-16); AST/SGOT 54 U/L (15-37); BILIRUBIN,TOTAL 0.5 MG/DL (0.2-1.0); BLOOD UREA NITROGEN 12 MG/DL (7-18); CALCIUM LEVEL 8.7 MG/DL (8.5-10.1); CARBON DIOXIDE LEVEL 30 MEQ/L (21-32); CHLORIDE LEVEL 98 MEQ/L (98-107); CHOLESTEROL LEVEL 148 MG/DL (<200); CREATININE FOR GFR 0.93 MG/DL (0.70-1.30); FREE T4 1.01 NG/DL (0.76-1.46); GLOMERULAR FILTRATION RATE > 60.0 (>56); GLUCOSE, FASTING 246 MG/DL (70-105); POTASSIUM SERUM 4.4 MEQ/L (3.5-5.1); SODIUM LEVEL 135 MEQ/L (136-145); TRIGLYCERIDES LEVEL 101 MG/DL (<150)
== END ==
LOC: M SFHCADAM 11:12
PROVIDERS: ATTEND Physician Assistant
DX: E11.9 Type 2 diabetes mellitus without complications (principal); I10 Essential (primary) hypertension

== ENCOUNTER → 2017-05-03 | Outpatient (REF) | payer OTHER, SELFPAY ==
[2017-05-03 14:11] LABS: ANION GAP 5 MEQ/L (8-16); BLOOD UREA NITROGEN 12 MG/DL (7-18); CARBON DIOXIDE LEVEL 31 MEQ/L (21-32); CHLORIDE LEVEL 102 MEQ/L (98-107); GLOMERULAR FILTRATION RATE > 60.0 (>56); GLUCOSE, FASTING 247 MG/DL (70-105); SODIUM LEVEL 138 MEQ/L (136-145)
== END ==
LOC: M SFHCADAM 08:42
PROVIDERS: ATTEND Physician Assistant
DX: E11.65 Type 2 diabetes mellitus with hyperglycemia (principal); Z79.4 Long term (current) use of insulin

== ENCOUNTER → 2020-10-22 | Outpatient (CLI) | payer OTHER ==
--- NOTE | 2020-10-24 07:53 | ECWPNPC ---
PATIENT NAME: ISAI JARQUIN : 1965 GENDER: MALE VISIT DATE: 10/22/2020 DISCHARGE DATE: 10/22/20941 VISIT LOCKED DATE TIME: PHYSICIAN: MALIHA NAGY PHYSICIAN PAGER NO: ACTIVE RESOURCE: MALIHA NAGY REASON FOR APPOINTMENT 1. CHRONIC LOW BACK HISTORY OF PRESENT ILLNESS DEPRESSION SCREENING: PHQ-2 (2015 EDITION) LITTLE INTEREST OR PLEASURE IN DOING THINGS?NOT AT ALL FEELING DOWN, DEPRESSED, OR HOPELESS?NOT AT ALL TOTAL SCORE0 55-YEAR-OLD MALE IN FOR INITIAL PAIN CONSULT REGARDING LOW BACK PAIN. PATIENT DOES ADMIT TO A HISTORY OF A LAMINECTOMY AND STATES HE'S HAD BACK PAIN SINCE THAT TIME. HE RATES HIS PAIN CURRENTLY AT A 6 OUT OF 10 AND DESCRIBES IT ACHING, CONTINUOUS, AND SHARP. PATIENT HAS HAD INJECTIONS IN THE PAST TO NO AVAIL FURTHER STATING THAT HE HAS TRIED MEDICATIONS AND THEY WERE NOT HELPFUL. GENERAL: - - - - -. FALL RISK SCREENING: SCREENING : NO FALLS REPORTED IN THE LAST YEAR , : NO FALLS REPORTED IN THE LAST YEAR , : NO FALLS REPORTED IN THE LAST YEAR. PAIN SCREENING: PATIENT HAS A COMPLAINT OF ACUTE OR CHRONIC PAIN :YES LOCATION OF PAIN:LOW BACK INTENSITY OF PAIN (SCALE OF 1 TO 10):6 WHAT DOES YOUR PAIN FEEL LIKE:ACHING, CONTINOUS, SHARP DURATION:CONTINOUS, AWAKENS FROM SLEEP PAIN IS INCREASED BY:ACTIVITIES, PROLONGED STANDING PAIN IS DECREASED BY:OTHERS ICE PACK, PAIN MEDS HELP LITTLE. NURSING NOTE: - - - - -. PAIN CENTER INTAKE QUESTIONS: DO YOU HAVE A HISTORY OF MRSA? :NO DO YOU TAKE A BLOOD THINNERS? :NO DO YOU HAVE ANY BLEEDING DISORDERS? :NO ANY NEW NUMBNESS OR WEAKNESS IN YOUR LEGS OR ARMS? :YES LEFT HAND WEAKNESS AND NUMBNESS ANY PACEMAKER,DEFIBRILLATOR, OR DORSAL COLUMN STIMULATOR? :NO DO YOU HAVE ANY RASHES OR OPEN SORES? :NO ARE YOU ALLERGIC TO IV DYE? :NO ARE YOU DIABETIC? :YES TYPE I ANY NEW PROBLEMS WITH YOUR MEDICATIONS? :NO HAVE YOU RECEIVED A VACCINE IN THE PAST 30 DAYS? :NO DO YOU PLAN TO RECEIVE A VACCINE IN THE NEXT 21 DAYS? :NO DO YOU NEED ANY PRESCRIPTION? :NO DO YOU TAKE ANY IMMUNOSUPPRESSIVE MEDICATIONS? :NO CURRENT MEDICATIONS TAKING TERBINAFINE HCL 1 % CREAM 1 APPLICATION EXTERNALLY TWICE DAILY TAKING LYRICA 50 MG CAPSULE 1 CAPSULE ORALLY ONCE A DAY TAKING AMLODIPINE BESY-BENAZEPRIL HCL 5-10 MG CAPSULE DIRECTED ORALLY TAKING TENS UNIT - TAKING LEVOTHYROXINE SODIUM 25 MCG TABLET 1 TABLET IN THE MORNING ON AN EMPTY STOMACH ORALLY ONCE A DAY TAKING FLUTICASONE PROPIONATE 50 MCG/ACT SUSPENSION 2 SPRAYS IN EACH NOSTRIL NASALLY ONCE A DAY TAKING OMEPRAZOLE 20 MG CAPSULE DELAYED RELEASE 1 CAPSULE 30 MINUTES BEFORE MORNING MEAL ORALLY ONCE A DAY TAKING OZEMPIC (1 MG/DOSE) 2 MG/1.5ML SOLUTION PEN-INJECTOR DIRECTED SUBCUTANEOUS TAKING ATORVASTATIN CALCIUM 40 MG TABLET 1 TABLET ORALLY ONCE A DAY TAKING GLUCOMETER TWICE DAILY TAKING GLUCOMETER ELITE TEST STRIPS TAKING LANCETS ULTRA FINE TAKING ASPIRIN CHILDRENS 81 MG TABLET CHEWABLE 1 TABLET ORALLY ONCE A DAY TAKING METFORMIN HCL 1000 MG TABLET 1 TABLET WITH A MEAL ORALLY ONCE A DAY TAKING LAMISIL AT ATHLETES FOOT 1 % CREAM 1 APPLICATION EXTERNALLY ONCE A DAY NOT-TAKING ROPINIROLE HCL 0.5 MG TABLET 1 TABLET 1 TO 3 HOURS BEFORE BEDTIME ORALLY ONCE A DAY NOT-TAKING TIZANIDINE HCL 4 MG TABLET 1 TABLET NEEDED ORALLY THREE TIMES A DAY NOT-TAKING SILDENAFIL CITRATE 50 MG TABLET 1 TABLET NEEDED ORALLY ONCE A DAY NOT-TAKING DICLOFENAC POTASSIUM 50 MG TABLET 1 TABLET WITH FOOD OR MILK ORALLY TWICE A DAY NOT-TAKING GLYBURIDE 2.5 MG TABLET 1 TABLET WITH BREAKFAST OR THE FIRST MAIN MEAL OF THE DAY ORALLY ONCE A DAY NOT-TAKING MAGNESIUM OXIDE 400 MG TABLET 1 TABLET NEEDED ORALLY ONCE A DAY NOT-TAKING LORAZEPAM 1 MG TABLET 1 TABLET AT BEDTIME NEEDED ORALLY ONCE A DAY NOT-TAKING AUGMENTIN 500-125 MG TABLET 1 TABLET ORALLY EVERY 8 HRS NOT-TAKING GABAPENTIN 400 MG CAPSULE 1 CAPSULE ORALLY THREE TIMES DAILY UNKNOWN LISINOPRIL 40 MG TABLET 1.5 TABLET ORALLY TWICE DAILY UNKNOWN METFORMIN HCL 1000 MG TABLET 1 TABLET WITH MEALS ORALLY TWICE A DAY UNKNOWN PRAVASTATIN SODIUM 40 MG TABLET 1 TABLET ORALLY ONCE A DAY UNKNOWN MAY HAVE - - DX: DM E11.9, ANXIETY F41.9, HTN I10 _ PAIENT IS UNDER MY CARE FOR DIABETES, HTN AND ANXIETY MEDICATION LIST REVIEWED AND RECONCILED WITH THE PATIENT PAST MEDICAL HISTORY HYPERTENSION TYPE 2 DIABETES MELLITUS, STARTED BASAL INSULIN 10/07 LUMBAGO ANXIETY HYPERLIPIDEMIA-- WAS ON STATIN IN PAST, WAS DC DUE TO MYALGIAS (THAT PERSISTED YEARS AFTER IT WAS DC) ETOH ABUSE - 6 BEERS/NIGHT NONCOMPLIANCE HYPOTHYROIDISM RADICULOPATHY,LUMBAR REGION TINEA UNGUIUM ALLERGIES ATORVASTATIN CALCIUM: MYALGIAS - SIDE EFFECTS SOCIAL HISTORY GENERAL: TOBACCO USE ARE YOU A:: NEVER SMOKER. LATEX QUESTIONNAIRE LATEX ALLERGY : HAVE YOU EVER DEVELOPED ANY TYPE OF REACTION AFTER HANDLING LATEX PRODUCTS SUCH RUBBER GLOVES, CONDOMS, DIAPHRAGMS, BALLOONS, SOCKS, OR UNDERWEAR?NO LATEX ALLERGY : HAVE YOU EVER DEVELOPED ANY TYPE OF REACTION DURING OR AFTER DENTAL APPOINTMENT, VAGINAL/RECTAL EXAMINATION, SURGICAL PROCEDURE, OR ANY OTHER EXPOSURE?NO LATEX RISK : HAVE YOU EVER HAD ANY DIFFICULTY BREATHING OR HIVES AFTER EATING OR HANDLING ANY FRUITS, OR VEGETABLES; SUCH KIWI, BANANAS, STONE FRUITS, OR CHESTNUTSNO LATEX RISK : DO YOU HAVE A PREVIOUS PERSONAL HISTORY OF MORE THAN NINE SURGERIES, SPINA BIFIDA, OR REPEATED CATHERIZATIONS? NO LATEX RISK : ARE YOU FREQUENTLY EXPOSED TO LATEX PRODUCTS IN YOUR OCCUPATION?NO DATE ASKED : 10/22/2020 ALCOHOL USE: NO. BMI CARE GOAL FOLLOW-UP ABOVE NORMAL BMI FOLLOW-UPDIETARY MANAGEMENT EDUCATION, GUIDANCE, AND COUNSELING ALCOHOL SCREENING POINTS: 3, INTERPRETATION: NEGATIVE. RECREATIONAL DRUG USE DRUG USE?NO CAFFEINE CAFFEINE USE?YES HOW OFTEN AND HOW MUCH? COFFEE 1-2 DAILY SEXUAL HX HAD SEX IN THE LAST 12 MONTHS (VAGINAL, ORAL, OR ANAL)?: YES, WITH: WOMEN ONLY, USE PROTECTION?: NO, HAVE YOU EVER HAD AN STD?: NO. LANGUAGE LANGUAGES SPOKEN:IRISH LEARNING BARRIERS / SPECIAL NEEDS CHANGE FROM LAST VISIT?NO BARRIERS TO LEARNING?NO HEARING IMPAIRED?NO VISION IMPAIRED?YES :CORRECTIVE LENSES COGNITIVELY IMPAIRED?NO READINESS TO LEARN?YES LEARNING PREFERENCES?NO LEARNING CAPABILITIES PRESENT?YES EMOTIONAL BARRIERS?NO SPECIAL DEVICES?NO PRIMER POWDER BLENDER WET NEEDED?NO OCCUPATION: [employer]. EXERCISE: NO REGULAR EXERCISE. MARITAL STATUS: .. REVIEW OF SYSTEMS CONSTITUTIONAL: ANY RECENT FEVER NO . CHILLS NO . WEIGHT CHANGE OF UNKNOWN REASONS NO . MUSCULOSKELETAL: ANY UNUSUAL JOINT PAIN OR SWELLING NOT MENTIONED NO . SYSTEMIC LUPUS NO . ANY NEUROMUSCULAR DISORDER NOT MENTIONED NO . LYME DISEASE NO . GASTROENTEROLOGY: ANY NEW CHANGE IN BOWEL CONTROL? NO . HISTORY OF LIVER DISORDER NOT MENTIONED NO . HISTORY OF UNUSUAL ABDOMINAL PAIN OR CRAMPING NOT MENTIONED NO . NO CONSTIPATION. GENITOURINARY: ANY NEW CHANGE IN BLADDER CONTROL? NO . ANY RENAL/KIDNEY CONDITON NOT MENTIONED NO . NEUROLOGY: HISTORY OF TBI NOT MENTIONED NO . OTHER NEW NUMBNESS OR PAIN PATTERNS NOT MENTIONED NO . NEW ONSET DIZZINESS OR NEUROLOGICAL CHANGES NOT MENTIONED NO . HISTORY OF SEVERE HEADACHES NOT MENTIONED NO . HISTORY OF STROKE OR NEUROLOGICAL DISORDER NOT MENTIONED NO . CARDIOLOGY: HEART SURGERY NO . CONGESTIVE HEART FAILURE/FLUID OVERLOAD NOT MENTIONED NO . HISTORY OF CHEST PAIN,IRREGULAR HEART BEAT NOT MENTIONED NO . RESPIRATORY: SHORTNESS OF BREATH ON EXERTION, WHEEZES, UNUSUAL COUGH NOT MENTIONED NO . ENDOCRINOLOGY: ADRENAL GLAND OR THYROID DISORDERS NOT MENTIONED NO . UNUSUAL URINATION, DIZZINESS OR LETHARGY NOT MENTIONED NO . VITAL SIGNS WT 225.6 LBS, HT 68", BMI 34.30 INDEX, BP 159/83 MM HG, HR 96 /MIN, RR 18 /MIN, TEMP 98 F, OXYGEN SAT % 98%, SAFE IN ENV? (Y/N) YES, REVIEWED BY: AMINA RIZO MA. EXAMINATION GENERAL EXAMINATION: GENERALNO ACUTE DISTRESS, WELL NOURISHED AND HYDRATED. PSYCHAPPROPRIATE MOOD AND AFFECT . LUNGS:CLEAR TO AUSCULTATION BILATERALLY, NO WHEEZES, RHONCHI, RALES. HEART:NO MURMURS, REGULAR RATE AND RHYTHM. BACK:POINT TENDER ALONG LUMBAR SPINE, PATIENT DOES ENDORSE INCREASED PAIN WITH FACET LOADING. . MUSCULOSKELETAL: EQUAL STRENGTH OF THE LOWER EXTREMITIES BILATERALLY. ASSESSMENTS POST LAMINECTOMY SYNDROME - M96.1 (PRIMARY) TREATMENT POST LAMINECTOMY SYNDROME NOTES: 55-YEAR-OLD MALE IN FOR INITIAL PAIN CONSULT. GIVEN PRESENTING SYMPTOMS RECOMMEND MELOXICAM 15 MG DAILY AND STARTING BACLOFEN 5 MG 3 TIMES A DAY WITH FOLLOW-UP IN ONE MONTH TO DETERMINE EFFICACY OF TREATMENT. PATIENT HAS EXPRESSED UNDERSTANDING OF AND WAS IN AGREEMENT WITH TREATMENT PLAN. GIVEN TIME TO ASK QUESTIONS AND EXPRESS CONCERNS. OTHERS START MELOXICAM TABLET, 15 MG, 1 TABLET, ORALLY, ONCE A DAY, 30 DAY(S), 30 START BACLOFEN TABLET, 5 MG, 1 TABLET NEEDED, ORALLY, ONCE A DAY, 30 DAY(S), 30 CLINICAL NOTES: MEDICATION INFORMATION PRINTED AND PROVIDED TO PATIENT. PATIENT VERBALIZED UNDERSTANDING. CECILIA RIZO MA. PROCEDURE CODES FA211 ESTABILISHED PATIENT [facility] FACILITY CHARGE DISPOSITION & COMMUNICATION FOLLOW UP 4 WEEKS (REASON: NEW MED ) ELECTRONICALLY SIGNED BY RC EDWARDS ON 10/23/2020 AT 08:36 AM EDT DISCLAIMER : THIS IS A VISIT SUMMARY EXTRACTED FROM THE [employer] CHART. IT IS NOT A COPY OF THE [facility] PROGRESS NOTE. MTDD
== END ==
LOC: M PAIN 08:30
PROVIDERS: ATTEND Family Medicine
DX: M96.1 Postlaminectomy syndrome, not elsewhere classified (principal); E10.9 Type 1 diabetes mellitus without complications; E03.9 Hypothyroidism, unspecified; Z86.59 Personal history of other mental and behavioral disorders; Z88.8 Allergy status to other drugs, medicaments and biological substances; Z79.82 Long term (current) use of aspirin; Z79.84 Long term (current) use of oral hypoglycemic drugs; Z79.899 Other long term (current) drug therapy

== ENCOUNTER → 2020-11-19 | Outpatient (CLI) | payer OTHER ==
--- NOTE | 2020-11-21 04:54 | ECWPNPC ---
PATIENT NAME: ISAI JARQUIN : 1965 GENDER: MALE VISIT DATE: 11/19/2020 DISCHARGE DATE: 11/19/20 0934 VISIT LOCKED DATE TIME: PHYSICIAN: MALIHA NAGY PHYSICIAN PAGER NO: ACTIVE RESOURCE: MALIHA NAGY REASON FOR APPOINTMENT 1. NEW MED HISTORY OF PRESENT ILLNESS FALL RISK SCREENING: SCREENING : NO FALLS REPORTED IN THE LAST YEAR.. 55-YEAR-OLD MALE IN FOR CHRONIC PAIN FOLLOW-UP. AT LAST CLINIC VISIT PATIENT WAS STARTED ON MELOXICAM AND BACLOFEN AND HE FEELS THESE HAVE BEEN BENEFICIAL. PATIENT DOES INQUIRE ABOUT POTENTIALLY INCREASING HIS LYRICA. HE RATES HIS PAIN CURRENTLY AT A 7 OUT OF 10 AND DESCRIBES IT ACHING, CONTINUOUS, SHARP, THROBBING, AND SORE. PAIN SCREENING: PATIENT HAS A COMPLAINT OF ACUTE OR CHRONIC PAIN :YES LOCATION OF PAIN:LOW BACK INTENSITY OF PAIN (SCALE OF 1 TO 10):7 WHAT DOES YOUR PAIN FEEL LIKE:ACHING, CONTINOUS, SHARP, THROBBING, SORE DURATION:CONTINOUS, AWAKENS FROM SLEEP PAIN IS INCREASED BY:ACTIVITIES, PROLONGED STANDING PAIN IS DECREASED BY:USE OF PAIN MEDICATIONS, OTHERS ICE PACK, PAIN MEDS HELP LITTLE. PLAN/GOALS/TREATMENT/INTERVENTION/FOLLOW UP:SEE PLAN NURSING NOTE: - - - - -. PAIN CENTER INTAKE QUESTIONS: DO YOU HAVE A HISTORY OF MRSA? :NO DO YOU TAKE A BLOOD THINNERS? :NO DO YOU HAVE ANY BLEEDING DISORDERS? :NO ANY NEW NUMBNESS OR WEAKNESS IN YOUR LEGS OR ARMS? :NO ANY PACEMAKER,DEFIBRILLATOR, OR DORSAL COLUMN STIMULATOR? :NO DO YOU HAVE ANY RASHES OR OPEN SORES? :NO ARE YOU ALLERGIC TO IV DYE? :NO ARE YOU DIABETIC? :YES FSBS NOT ASSESSED THIS MORNING PER PATIENT. ANY NEW PROBLEMS WITH YOUR MEDICATIONS? :NO HAVE YOU RECEIVED A VACCINE IN THE PAST 30 DAYS? :NO DO YOU PLAN TO RECEIVE A VACCINE IN THE NEXT 21 DAYS? :NO DO YOU NEED ANY PRESCRIPTION? :YES BACLOFEN, MELOXICAM, LYRICA INCREASE IN DOSE OR FREQUENCY? DO YOU TAKE ANY IMMUNOSUPPRESSIVE MEDICATIONS? :NO DO YOU HAVE ANY KIDNEY OR LIVER DISEASE? :NO IS THERE A CHANCE YOU COULD BE ? :N/A ARE YOU BREAST FEEDING? :N/A CURRENT MEDICATIONS TAKING TERBINAFINE HCL 1 % CREAM 1 APPLICATION EXTERNALLY TWICE DAILY TAKING LYRICA 50 MG CAPSULE 1 CAPSULE ORALLY ONCE A DAY TAKING AMLODIPINE BESY-BENAZEPRIL HCL 5-10 MG CAPSULE DIRECTED ORALLY TAKING TENS UNIT - TAKING LEVOTHYROXINE SODIUM 25 MCG TABLET 1 TABLET IN THE MORNING ON AN EMPTY STOMACH ORALLY ONCE A DAY TAKING FLUTICASONE PROPIONATE 50 MCG/ACT SUSPENSION 2 SPRAYS IN EACH NOSTRIL NASALLY ONCE A DAY TAKING OMEPRAZOLE 20 MG CAPSULE DELAYED RELEASE 1 CAPSULE 30 MINUTES BEFORE MORNING MEAL ORALLY ONCE A DAY TAKING OZEMPIC (1 MG/DOSE) 2 MG/1.5ML SOLUTION PEN-INJECTOR DIRECTED SUBCUTANEOUS TAKING ATORVASTATIN CALCIUM 40 MG TABLET 1 TABLET ORALLY ONCE A DAY TAKING GLUCOMETER TWICE DAILY TAKING GLUCOMETER ELITE TEST STRIPS TAKING LANCETS ULTRA FINE TAKING ASPIRIN CHILDRENS 81 MG TABLET CHEWABLE 1 TABLET ORALLY ONCE A DAY TAKING METFORMIN HCL 1000 MG TABLET 1 TABLET WITH A MEAL ORALLY ONCE A DAY TAKING LAMISIL AT ATHLETES FOOT 1 % CREAM 1 APPLICATION EXTERNALLY ONCE A DAY TAKING MELOXICAM 15 MG TABLET 1 TABLET ORALLY ONCE A DAY TAKING BACLOFEN 5 MG TABLET 1 TABLET NEEDED ORALLY ONCE A DAY NOT-TAKING ROPINIROLE HCL 0.5 MG TABLET 1 TABLET 1 TO 3 HOURS BEFORE BEDTIME ORALLY ONCE A DAY NOT-TAKING TIZANIDINE HCL 4 MG TABLET 1 TABLET NEEDED ORALLY THREE TIMES A DAY NOT-TAKING SILDENAFIL CITRATE 50 MG TABLET 1 TABLET NEEDED ORALLY ONCE A DAY NOT-TAKING DICLOFENAC POTASSIUM 50 MG TABLET 1 TABLET WITH FOOD OR MILK ORALLY TWICE A DAY NOT-TAKING GLYBURIDE 2.5 MG TABLET 1 TABLET WITH BREAKFAST OR THE FIRST MAIN MEAL OF THE DAY ORALLY ONCE A DAY NOT-TAKING MAGNESIUM OXIDE 400 MG TABLET 1 TABLET NEEDED ORALLY ONCE A DAY NOT-TAKING LORAZEPAM 1 MG TABLET 1 TABLET AT BEDTIME NEEDED ORALLY ONCE A DAY NOT-TAKING AUGMENTIN 500-125 MG TABLET 1 TABLET ORALLY EVERY 8 HRS NOT-TAKING GABAPENTIN 400 MG CAPSULE 1 CAPSULE ORALLY THREE TIMES DAILY UNKNOWN LISINOPRIL 40 MG TABLET 1.5 TABLET ORALLY TWICE DAILY UNKNOWN METFORMIN HCL 1000 MG TABLET 1 TABLET WITH MEALS ORALLY TWICE A DAY UNKNOWN PRAVASTATIN SODIUM 40 MG TABLET 1 TABLET ORALLY ONCE A DAY UNKNOWN MAY HAVE - - DX: DM E11.9, ANXIETY F41.9, HTN I10 _ PAIENT IS UNDER MY CARE FOR DIABETES, HTN AND ANXIETY MEDICATION LIST REVIEWED AND RECONCILED WITH THE PATIENT PAST MEDICAL HISTORY HYPERTENSION TYPE 2 DIABETES MELLITUS, STARTED BASAL INSULIN 3/17 LUMBAGO ANXIETY HYPERLIPIDEMIA-- WAS ON STATIN IN PAST, WAS DC DUE TO MYALGIAS (THAT PERSISTED YEARS AFTER IT WAS DC) ETOH ABUSE - 6 BEERS/NIGHT NONCOMPLIANCE HYPOTHYROIDISM RADICULOPATHY,LUMBAR REGION TINEA UNGUIUM ALLERGIES ATORVASTATIN CALCIUM: MYALGIAS - SIDE EFFECTS SOCIAL HISTORY GENERAL: TOBACCO USE ARE YOU A:: NEVER SMOKER. LATEX QUESTIONNAIRE LATEX ALLERGY : HAVE YOU EVER DEVELOPED ANY TYPE OF REACTION AFTER HANDLING LATEX PRODUCTS SUCH RUBBER GLOVES, CONDOMS, DIAPHRAGMS, BALLOONS, SOCKS, OR UNDERWEAR?NO LATEX ALLERGY : HAVE YOU EVER DEVELOPED ANY TYPE OF REACTION DURING OR AFTER DENTAL APPOINTMENT, VAGINAL/RECTAL EXAMINATION, SURGICAL PROCEDURE, OR ANY OTHER EXPOSURE?NO LATEX RISK : HAVE YOU EVER HAD ANY DIFFICULTY BREATHING OR HIVES AFTER EATING OR HANDLING ANY FRUITS, OR VEGETABLES; SUCH KIWI, BANANAS, STONE FRUITS, OR CHESTNUTSNO LATEX RISK : DO YOU HAVE A PREVIOUS PERSONAL HISTORY OF MORE THAN NINE SURGERIES, SPINA BIFIDA, OR REPEATED CATHERIZATIONS? NO LATEX RISK : ARE YOU FREQUENTLY EXPOSED TO LATEX PRODUCTS IN YOUR OCCUPATION?NO DATE ASKED : 11/19/2020 ALCOHOL USE: NO. BMI CARE GOAL FOLLOW-UP ABOVE NORMAL BMI FOLLOW-UPDIETARY MANAGEMENT EDUCATION, GUIDANCE, AND COUNSELING ALCOHOL SCREENING POINTS: 3, INTERPRETATION: NEGATIVE. RECREATIONAL DRUG USE DRUG USE?NO CAFFEINE CAFFEINE USE?YES HOW OFTEN AND HOW MUCH? COFFEE 1-2 DAILY SEXUAL HX HAD SEX IN THE LAST 12 MONTHS (VAGINAL, ORAL, OR ANAL)?: YES, WITH: WOMEN ONLY, USE PROTECTION?: NO, HAVE YOU EVER HAD AN STD?: NO. 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 EXERCISE: NO REGULAR EXERCISE. MARITAL STATUS: .. REVIEW OF SYSTEMS CONSTITUTIONAL: ANY RECENT FEVER NO . CHILLS NO . WEIGHT CHANGE OF UNKNOWN REASONS NO . GASTROENTEROLOGY: NEW UNEXPLAINABLE CHANGES IN BOWEL CONTROL NO . CONSTIPATION NO . GENITOURINARY: ANY NEW CHANGE IN BLADDER CONTROL? NO . NEUROLOGY: NEW ONSET DIZZINESS OR NEUROLOGICAL CHANGES NOT MENTIONED NO . NEW NUMBNESS OR PAIN PATTERNS NOT MENTIONED AND PERTINENT TO TODAY'S VISIT NO . CARDIOLOGY: NEW CHEST PRESSURE NO . PATIENT DENIES NO . RESPIRATORY: UNEXPLAINABLE COUGH NO . NEW SHORTNESS OF BREATH NO . VITAL SIGNS WT 232.0 LBS, HT 68", BMI 35.27 INDEX, BP 163/87 MM HG, HR 86 /MIN, RR 18 /MIN, TEMP 97.0 F, OXYGEN SAT % 98%, BLOOD GLUCOSE LEVEL NOT ASSESSED, SAFE IN ENV? (Y/N) YES, NA INITIALS AW 0859, REVIEWED BY: Shane PATEL DEPUTY [place] [employer]. EXAMINATION GENERAL EXAMINATION: GENERALNO ACUTE DISTRESS, WELL NOURISHED AND HYDRATED. PSYCHAPPROPRIATE MOOD AND AFFECT . LUNGS:CLEAR TO AUSCULTATION BILATERALLY, NO WHEEZES, RHONCHI, RALES. HEART:NO MURMURS, REGULAR RATE AND RHYTHM. ASSESSMENTS POST LAMINECTOMY SYNDROME - M96.1 (PRIMARY), RISK: (NULL) TREATMENT POST LAMINECTOMY SYNDROME CONTINUE LYRICA CAPSULE, 50 MG, 1 CAPSULE, ORALLY, THREE TIMES DAILY, 30 DAY(S), 90, REFILLS 1 NOTES: 55-YEAR-OLD MALE IN FOR CHRONIC PAIN FOLLOW-UP. GIVEN PRESENTING SYMPTOMS RECOMMEND INCREASING LYRICA TO 50 MG 3 TIMES A DAY WITH FOLLOW-UP IN ONE MONTH TO DETERMINE EFFICACY OF TREATMENT. PATIENT HAS EXPRESSED UNDERSTANDING OF AND WAS IN AGREEMENT WITH TREATMENT PLAN. GIVEN TIME TO ASK QUESTIONS AND EXPRESS CONCERNS. , [employer] REGISTRY REVIEWED AND DEMONSTRATES COMPLLIANCE. (REF # [id number] ). OTHERS REFILL MELOXICAM TABLET, 15 MG, 1 TABLET, ORALLY, ONCE A DAY, 30 DAY(S), 30 REFILL BACLOFEN TABLET, 5 MG, 1 TABLET NEEDED, ORALLY, ONCE A DAY, 30 DAY(S), 30 PROCEDURE CODES FA211 ESTABILISHED PATIENT [facility] CHARGE DISPOSITION & COMMUNICATION FOLLOW UP 4 WEEKS (REASON: MED INCREASE ) ELECTRONICALLY SIGNED BY RC EDWARDS ON 11/20/2020 AT 08:31 AM EDT DISCLAIMER : THIS IS A VISIT SUMMARY EXTRACTED FROM THE [employer] CHART. IT IS NOT A COPY OF THE [employer] PROGRESS NOTE. SEBAS
== END ==
LOC: M PAIN 09:00
PROVIDERS: ATTEND Family Medicine
DX: M96.1 Postlaminectomy syndrome, not elsewhere classified (principal); E11.9 Type 2 diabetes mellitus without complications; E03.9 Hypothyroidism, unspecified; Z86.59 Personal history of other mental and behavioral disorders; Z88.8 Allergy status to other drugs, medicaments and biological substances; Z79.82 Long term (current) use of aspirin; Z79.84 Long term (current) use of oral hypoglycemic drugs; Z79.899 Other long term (current) drug therapy

== ENCOUNTER → 2022-01-03 | Outpatient (CLI) | payer OTHER | LOC: M PAIN 14:00 | PROVIDERS: ATTEND Nurse Practitioner Family | DX: M96.1 Postlaminectomy syndrome, not elsewhere classified (principal); G89.29 Other chronic pain; E11.9 Type 2 diabetes mellitus without complications; Z86.59 Personal history of other mental and behavioral disorders; Z88.8 Allergy status to other drugs, medicaments and biological substances; Z79.4 Long term (current) use of insulin; Z79.82 Long term (current) use of aspirin; Z79.899 Other long term (current) drug therapy ==

== ENCOUNTER → 2022-08-22 | Outpatient (CLI) | payer OTHER | LOC: M PAIN 11:00 | PROVIDERS: ATTEND Nurse Practitioner Family | DX: M96.1 Postlaminectomy syndrome, not elsewhere classified (principal); G89.29 Other chronic pain; E11.9 Type 2 diabetes mellitus without complications; I10 Essential (primary) hypertension; Z86.59 Personal history of other mental and behavioral disorders; Z88.8 Allergy status to other drugs, medicaments and biological substances; Z79.4 Long term (current) use of insulin; Z79.82 Long term (current) use of aspirin; Z79.899 Other long term (current) drug therapy ==

== ENCOUNTER → 2023-02-03 | Outpatient (CLI) | payer OTHER | LOC: M PAIN 10:00 | PROVIDERS: ATTEND Nurse Practitioner Family | DX: M79.18 Myalgia, other site (principal); E11.9 Type 2 diabetes mellitus without complications; I10 Essential (primary) hypertension; M54.17 Radiculopathy, lumbosacral region; F41.9 Anxiety disorder, unspecified; E78.5 Hyperlipidemia, unspecified; F10.10 Alcohol abuse, uncomplicated; E03.9 Hypothyroidism, unspecified; Z79.891 Long term (current) use of opiate analgesic; Z79.82 Long term (current) use of aspirin; Z79.899 Other long term (current) drug therapy; Z88.8 Allergy status to other drugs, medicaments and biological substances ==

== ENCOUNTER → 2023-02-28 | Outpatient (CLI) | payer OTHER | LOC: M PAIN 15:30 | PROVIDERS: ATTEND Nurse Practitioner Family | DX: M25.561 Pain in right knee (principal); G89.29 Other chronic pain; E11.9 Type 2 diabetes mellitus without complications; I10 Essential (primary) hypertension; Z86.59 Personal history of other mental and behavioral disorders; Z88.8 Allergy status to other drugs, medicaments and biological substances; Z79.4 Long term (current) use of insulin; Z79.85 Long-term (current) use of injectable non-insulin antidiabetic drugs; Z79.899 Other long term (current) drug therapy ==

== ENCOUNTER → 2023-03-10 | Outpatient (CLI) | payer OTHER ==
[~2023-03-10] MED LIST: TRIAMCINOLONE ACETONIDE SUSP 40MG/ML 1ML VIAL As Ordered ONE; diazePAM 5MG TABLET As Ordered ONE; oxyCODONE 5MG TAB As Ordered ONE
== END ==
LOC: M PAIN 13:00
PROVIDERS: ATTEND Anesthesiology
DX: M79.18 Myalgia, other site (principal); G89.29 Other chronic pain; E11.9 Type 2 diabetes mellitus without complications; I10 Essential (primary) hypertension; Z86.59 Personal history of other mental and behavioral disorders; Z88.8 Allergy status to other drugs, medicaments and biological substances; Z79.4 Long term (current) use of insulin; Z79.85 Long-term (current) use of injectable non-insulin antidiabetic drugs; Z79.899 Other long term (current) drug therapy
CPT/HCPCS: 20552; J0665; J3301

== ENCOUNTER → 2023-04-26 | Outpatient (CLI) | payer OTHER | LOC: M PAIN 11:15 | PROVIDERS: ATTEND Anesthesiology | DX: M79.10 Myalgia, unspecified site (principal); M47.816 Spondylosis without myelopathy or radiculopathy, lumbar region; M96.1 Postlaminectomy syndrome, not elsewhere classified; M25.561 Pain in right knee; E11.9 Type 2 diabetes mellitus without complications; Z88.8 Allergy status to other drugs, medicaments and biological substances; Z79.4 Long term (current) use of insulin; Z79.85 Long-term (current) use of injectable non-insulin antidiabetic drugs; Z79.899 Other long term (current) drug therapy | CPT/HCPCS: 76000; G0463 ==

== ENCOUNTER → 2023-05-18 | Outpatient (CLI) | payer OTHER | LOC: M SOG 10:28 | PROVIDERS: ATTEND Orthopaedic Surgery | DX: M25.561 Pain in right knee (principal) ==

== ENCOUNTER → 2023-06-08 | Outpatient (CLI) | payer OTHER ==
[~2023-06-08] MED LIST changes: +ISOVUE-M 300 61% 15ML VIAL As Ordered ONE; +LIDOCAINE 1% SDV 30ML VIAL As Ordered ONE; -diazePAM 5MG TABLET As Ordered ONE; -oxyCODONE 5MG TAB As Ordered ONE
== END ==
LOC: M PAIN 08:30
PROVIDERS: ATTEND Anesthesiology
DX: M47.816 Spondylosis without myelopathy or radiculopathy, lumbar region (principal); G89.29 Other chronic pain; Z88.8 Allergy status to other drugs, medicaments and biological substances; Z79.4 Long term (current) use of insulin; Z79.84 Long term (current) use of oral hypoglycemic drugs; Z79.85 Long-term (current) use of injectable non-insulin antidiabetic drugs; Z79.899 Other long term (current) drug therapy
CPT/HCPCS: 64493; 64494; J0665; J3301; Q9967

== ENCOUNTER → 2023-07-06 | Outpatient (CLI) | payer OTHER | LOC: M PAIN 11:30 | PROVIDERS: ATTEND Anesthesiology | DX: M47.816 Spondylosis without myelopathy or radiculopathy, lumbar region (principal); G89.29 Other chronic pain; Z88.8 Allergy status to other drugs, medicaments and biological substances; Z79.4 Long term (current) use of insulin; Z79.84 Long term (current) use of oral hypoglycemic drugs; Z79.85 Long-term (current) use of injectable non-insulin antidiabetic drugs; Z79.899 Other long term (current) drug therapy ==

== ENCOUNTER → 2023-07-27 | Outpatient (CLI) | payer OTHER ==
[~2023-07-27] MED LIST changes: -ISOVUE-M 300 61% 15ML VIAL As Ordered ONE; -LIDOCAINE 1% SDV 30ML VIAL As Ordered ONE; +PROHANCE 279.3MG/ML 15ML VIAL ONE; +PROHANCE 279.3MG/ML 5ML VIAL ONE; -TRIAMCINOLONE ACETONIDE SUSP 40MG/ML 1ML VIAL As Ordered ONE
== END ==
LOC: M PLAIMG 11:01
PROVIDERS: ATTEND Anesthesiology
DX: M47.816 Spondylosis without myelopathy or radiculopathy, lumbar region (principal); Z98.890 Other specified postprocedural states
CPT/HCPCS: 72158; A9576

== ENCOUNTER → 2023-09-15 | Outpatient (CLI) | payer OTHER | LOC: M PLAIMG 06:41 | PROVIDERS: ATTEND Orthopaedic Surgery | DX: S83.281A Other tear of lateral meniscus, current injury, right knee, initial encounter (principal); S83.241A Other tear of medial meniscus, current injury, right knee, initial encounter; M25.461 Effusion, right knee; Y93.9 Activity, unspecified; Y92.9 Unspecified place or not applicable ==

== ENCOUNTER → 2023-12-25 | Outpatient (CLI) | payer OTHER | LOC: M PAIN 16:30 | PROVIDERS: ATTEND Nurse Practitioner Family | DX: M47.26 Other spondylosis with radiculopathy, lumbar region (principal); M96.1 Postlaminectomy syndrome, not elsewhere classified; G89.29 Other chronic pain; I10 Essential (primary) hypertension; E11.9 Type 2 diabetes mellitus without complications; M54.50 Low back pain, unspecified; F41.9 Anxiety disorder, unspecified; E78.5 Hyperlipidemia, unspecified; F10.10 Alcohol abuse, uncomplicated; E03.9 Hypothyroidism, unspecified; Z79.84 Long term (current) use of oral hypoglycemic drugs; Z79.899 Other long term (current) drug therapy; Z88.8 Allergy status to other drugs, medicaments and biological substances ==

== ENCOUNTER → 2024-03-06 | Outpatient (CLI) | payer OTHER | LOC: M SOG 08:01 | PROVIDERS: ATTEND Orthopaedic Surgery | DX: M25.561 Pain in right knee (principal) ==

== ENCOUNTER → 2024-03-07 | Outpatient (CLI) | payer OTHER | LOC: M SOG 15:38 | PROVIDERS: ATTEND Orthopaedic Surgery | DX: M17.0 Bilateral primary osteoarthritis of knee (principal); M25.561 Pain in right knee ==

== ENCOUNTER → 2024-04-04 | Outpatient (CLI) | payer OTHER ==
[~2024-04-04] MED LIST changes: +ISOVUE-M 300 61% 15ML VIAL As Ordered ONE; +LIDOCAINE 1% SDV 30ML VIAL As Ordered ONE; -PROHANCE 279.3MG/ML 15ML VIAL ONE; -PROHANCE 279.3MG/ML 5ML VIAL ONE; +TRIAMCINOLONE ACETONIDE SUSP 40MG/ML 1ML VIAL As Ordered ONE
== END ==
LOC: M PAIN 14:30
PROVIDERS: ATTEND Anesthesiology
DX: M47.26 Other spondylosis with radiculopathy, lumbar region (principal); I10 Essential (primary) hypertension; E11.9 Type 2 diabetes mellitus without complications; E03.9 Hypothyroidism, unspecified; F41.9 Anxiety disorder, unspecified; M54.50 Low back pain, unspecified; F10.10 Alcohol abuse, uncomplicated; Z79.84 Long term (current) use of oral hypoglycemic drugs; Z88.8 Allergy status to other drugs, medicaments and biological substances; Z53.20 Procedure and treatment not carried out because of patient's decision for unspecified reasons

== ENCOUNTER → 2024-05-22 | Outpatient (CLI) | payer OTHER | LOC: M PAIN 16:30 | PROVIDERS: ATTEND Anesthesiology | DX: M96.1 Postlaminectomy syndrome, not elsewhere classified (principal); M47.26 Other spondylosis with radiculopathy, lumbar region; G89.29 Other chronic pain; I10 Essential (primary) hypertension; E11.9 Type 2 diabetes mellitus without complications; F41.9 Anxiety disorder, unspecified; E78.5 Hyperlipidemia, unspecified; F10.10 Alcohol abuse, uncomplicated; E03.9 Hypothyroidism, unspecified; Z79.4 Long term (current) use of insulin; Z79.899 Other long term (current) drug therapy; Z88.8 Allergy status to other drugs, medicaments and biological substances | CPT/HCPCS: 76000; G0463 ==

== ENCOUNTER → 2024-06-17 | Outpatient (CLI) | payer OTHER ==
[~2024-06-17] MED LIST changes: -ISOVUE-M 300 61% 15ML VIAL As Ordered ONE; -LIDOCAINE 1% SDV 30ML VIAL As Ordered ONE; +PROHANCE 279.3MG/ML 15ML VIAL As Ordered ONE; +PROHANCE 279.3MG/ML 5ML VIAL As Ordered ONE; -TRIAMCINOLONE ACETONIDE SUSP 40MG/ML 1ML VIAL As Ordered ONE
== END ==
LOC: M RAD 14:15
PROVIDERS: ATTEND Anesthesiology
DX: M96.1 Postlaminectomy syndrome, not elsewhere classified (principal); M47.816 Spondylosis without myelopathy or radiculopathy, lumbar region
CPT/HCPCS: 72158; A9576

== ENCOUNTER → 2024-06-27 | Outpatient (CLI) | payer OTHER ==
[2024-06-27 17:32] LABS: BASO % 0.2 % (0.0-1.0); EOS # 0.1 10^3/uL (0.0-0.5); EOS % 1.5 % (0.0-3.0); HEMATOCRIT 39.7 % (42.0-52.0); HEMOGLOBIN 12.5 g/dl (13.5-17.5); LYMPH # 1.7 10^3/uL (1.5-5.0); LYMPH % 20.3 % (24.0-44.0); MEAN CORPUSCULAR HEMOGLOBIN 29.6 pg (27.0-33.0); MEAN CORPUSCULAR HGB CONC 31.5 g/dl (32.0-36.5); MEAN CORPUSCULAR VOLUME 93.9 fl (80.0-96.0); MONO # 0.7 10^3/uL (0.0-0.8); MONO % 7.9 % (2.0-8.0); NEUTROPHILS # 5.9 10^3/uL (1.5-8.5); NEUTROPHILS % 69.9 % (36.0-66.0); PLATELET COUNT, AUTOMATED 157 10^3/uL (150-450); RED BLOOD COUNT 4.23 10^6/uL (4.30-6.10); WHITE BLOOD COUNT 8.5 10^3/uL (4.0-10.0)
[2024-06-27 17:44] LABS: ERYTHROCYTE SEDIMENTATION RATE 21 mm/hr (0-20)
== END ==
LOC: M PLALAB 14:10
PROVIDERS: ATTEND Internal Medicine Infectious Disease
DX: M54.50 Low back pain, unspecified (principal)

== ENCOUNTER → 2024-06-28 | Outpatient (CLI) | payer OTHER | LOC: M PAIN 16:45 | PROVIDERS: ATTEND Anesthesiology | DX: M47.816 Spondylosis without myelopathy or radiculopathy, lumbar region (principal); M96.1 Postlaminectomy syndrome, not elsewhere classified; G89.29 Other chronic pain; I10 Essential (primary) hypertension; E11.9 Type 2 diabetes mellitus without complications; F41.9 Anxiety disorder, unspecified; M54.50 Low back pain, unspecified; E78.5 Hyperlipidemia, unspecified; E03.9 Hypothyroidism, unspecified; Z79.4 Long term (current) use of insulin; Z79.899 Other long term (current) drug therapy; Z88.8 Allergy status to other drugs, medicaments and biological substances ==

== ENCOUNTER → 2024-09-16 | Outpatient (CLI) | payer OTHER | LOC: M SOG 07:55 | PROVIDERS: ATTEND Orthopaedic Surgery | DX: Z53.9 Procedure and treatment not carried out, unspecified reason (principal) ==

== ENCOUNTER → 2024-09-17 | Outpatient (CLI) | payer OTHER | LOC: M SOG 07:53 | PROVIDERS: ATTEND Orthopaedic Surgery | DX: M17.11 Unilateral primary osteoarthritis, right knee (principal) ==

== ENCOUNTER → 2024-11-05 | Outpatient (CLI) | payer OTHER | LOC: M CARPUL 15:21 | PROVIDERS: ATTEND Internal Medicine Cardiovascular Disease | DX: R06.02 Shortness of breath (principal); I10 Essential (primary) hypertension; I49.3 Ventricular premature depolarization ==

== ENCOUNTER → 2025-03-25 | Outpatient (CLI) | payer OTHER | LOC: M SOG 06:52 | PROVIDERS: ATTEND Orthopaedic Surgery | DX: M17.0 Bilateral primary osteoarthritis of knee (principal) ==